=== PATIENT | male | born 1955 ===

== ENCOUNTER 2022-09-21 13:37 | Emergency (ER) | payer OTHER ==
[2022-09-21] MEDS ORDERED: NA CHLORIDE 0.9% 500 ML ONE (14:14)
[2022-09-21] MEDS ORDERED: FOLIC ACID 5 MG/ML VIAL ONE (14:15)
[2022-09-21] MEDS ORDERED: NA CHLORIDE 0.9% 1,000 ML ONE (14:15)
--- NOTE | 2022-09-21 14:20 | RAD REPORT ---
EXAM DESCRIPTION: CT - Head Brain Wo Cont - 09/21/2022 2:08 pm CLINICAL HISTORY: DIZZINESS Headache, drowsiness COMPARISON: No comparisons TECHNIQUE: All CT scans are performed using dose optimization technique as appropriate and may inclu de automated exposure control or mA/KV adjustment according to patient size. FINDINGS: No intracranial hemorrhage, hydrocephalus or extra-axial fluid collection.Mild generalized brain atrophy is present with mild periventricular and deep white matter chronic microvascular ische luzmaria changes.No areas of brain edema or evidence of midline shift. The paranasal sinuses and mastoids are clear. The calvarium is intact. IMPRESSION: No acute intracranial abnormality.
[2022-09-21 14:41] LABS: Absolute Lymphocytes (CBC) 1.5 K/uL (0.7-4.9); Hematocrit 46.1 % (39.6-49.0); MPV 7.8 fL (7.6-11.3); RBC Red Blood Cell Count 5.18 M/uL (4.33-5.43)
--- NOTE | 2022-09-21 14:47 | RAD REPORT ---
EXAM DESCRIPTION: RAD - Chest Single View - 09/21/2022 2:37 pm CLINICAL HISTORY: CHEST PAIN Chest pain. COMPARISON: Chest Pa And Lat (2 Views) dated 12/08/2017 FINDINGS: Portable technique limits examination quality. The lungs are emphysematous but grossly clear. The heart is normal in size. No displaced fractures. IMPRESSION: No acute intrathoracic process suspected.
--- NOTE | 2022-09-21 14:50 | RAD REPORT ---
EXAM DESCRIPTION: CT - Head angio - 09/21/2022 2:41 pm CLINICAL HISTORY: DIZZINESS Headache, drowsiness COMPARISON: <Comparisons> TECHNIQUE: CT angiography of the head was performed with MIPs. All CT scans are performed using dose optimization technique as appropriate and may include automated exposure control or mA/KV adjustment according to patient size. FINDINGS: No evidence of large vessel occlusion. No evidence of aneurysm is detected. No flow-limiti ng stenosis or vascular malformation identified. Antegrade flow is seen in the vertebral arteries. The vertebral arteries are codominant. The visualized dural venous sinuses are patent. IMPRESSION: No significant flow abnormality is detected.
[2022-09-21 14:56] LABS: Potassium 3.5 mEq/L (3.5-5.1); Troponin High Sensitivity 3.4 pg/mL (<58.9)
--- NOTE | 2022-09-21 14:57 | RAD REPORT ---
EXAM DESCRIPTION: CT - Neck Angio - 09/21/2022 2:42 pm CLINICAL HISTORY: FEVER Neck pain and swelling COMPARISON: <Comparisons> TECHNIQUE: CT angiography of the neck vessels was performed with MIPs. All CT scans are performed using dose optimization technique as appropriate and may include automated exposure control or mA/KV adjustment according to patient size. FINDINGS: A left aortic arch is identified with normal three vessel configuration of the great vesse ls. No significant flow abnormality is seen of the common carotid bilaterally. Mild hard plaque is seen involving both carotid bulbs. No significant stenosis identified bilaterally . Normal flow is seen within both vertebral arteries. IMPRESSION: No significant flow abnormality of the neck vessels is identified. Mild hard plaque seen in both carotid bulbs NASCET criteria used. Mild 0-49% stenosis Moderate 50-69% stenosis Severe 70-99% stenosis
[2022-09-21 15:09] LABS: Specific Gravity 1.017 (1.005-1.030); Urine Bilirubin NEGATIVE (Negative); Urine Blood Negative (Negative); Urine Clarity Clear (Clear); Urine Color Light-Yellow (Yellow); Urine Glucose NEGATIVE (Negative); Urine Protein NEGATIVE (Negative); Urine Urobilinogen Normal (Normal)
--- NOTE | 2022-09-21 16:00 | EDPHYS ---
Physician Documentation [facility] Name: Lambert Mccracken Age: 67 yrs Sex: Male : 1955 Arrival Date: 09/21/2022 Time: 13:37 Bed 13 Private MD: ED Physician Allan Larson HPI: 09/21 15:54 This 67 yrs old Male presents to ER via Ambulatory with complaints of alysia Dizziness, Blood Pressure Problem. 15:54 The patient presents with dizziness, sense of spinning, vertigo. Onset: The alysia symptoms/episode began/occurred last night. Context: occurred on a street or driveway. Modifying factors: The symptoms are alleviated by holding head still, the symptoms are aggravated by movement of head. Associated signs and symptoms: Pertinent positives: headache. Severity of symptoms: At their worst the symptoms were moderate in the emergency department the symptoms are unchanged. Patient's baseline: Neuro: alert and fully oriented. The patient has not experienced similar symptoms in the past. Historical: - Allergies: 13:49 No Known Allergies; hb - Home Meds: 13:49 None [Active]; hb - PMHx: 13:49 None; hb - PSHx: 13:49 None; hb - Immunization history:: Adult Immunizations up to date. - Social history:: Smoking status: Patient denies any tobacco usage or history of. ROS: 15:56 Constitutional: Negative for fever, chills, and weight loss, Eyes: Negative for injury, alysia pain, redness, and discharge, ENT: Negative for injury, pain, and discharge, Neck: Negative for injury, pain, and swelling, Cardiovascular: Negative for chest pain, palpitations, and edema, Respiratory: Negative for shortness of breath, cough, wheezing, and pleuritic chest pain, Abdomen/GI: Negative for abdominal pain, nausea, vomiting, diarrhea, and constipation, Back: Negative for injury and pain, : Negative for injury, bleeding, discharge, and swelling, MS/Extremity: Negative for injury and deformity, Skin: Negative for injury, rash, and discoloration, Psych: Negative for depression, anxiety, suicide ideation, homicidal ideation, and hallucinations, Allergy/Immunology: Negative for hives, rash, and allergies, Endocrine: Negative for neck swelling, polydipsia, polyuria, polyphagia, and marked weight changes, Hematologic/Lymphatic: Negative for swollen nodes, abnormal bleeding, and unusual bruising. 15:56 Neuro: Positive for dizziness. Exam: 15:56 Constitutional: This is a well developed, well nourished patient who is awake, alert, alysia and in no acute distress. Head/Face: Normocephalic, atraumatic. Eyes: Pupils equal round and reactive to light, extra-ocular motions intact. Lids and lashes normal. Conjunctiva and sclera are non-icteric and not injected. Cornea within normal limits. Periorbital areas with no swelling, redness, or edema. ENT: Nares patent. No nasal discharge, no septal abnormalities noted. Tympanic membranes are normal and external auditory canals are clear. Oropharynx with no redness, swelling, or masses, exudates, or evidence of obstruction, uvula midline. Mucous membranes moist. Neck: Trachea midline, no thyromegaly or masses palpated, and no cervical lymphadenopathy. Supple, full range of motion without nuchal rigidity, or vertebral point tenderness. No Meningismus. Chest/axilla: Normal chest wall appearance and motion. Nontender with no deformity. No lesions are appreciated. Cardiovascular: Regular rate and rhythm with a normal S1 and S2. No gallops, murmurs, or rubs. Normal PMI, no JVD. No pulse deficits. Respiratory: Lungs have equal breath sounds bilaterally, clear to auscultation and percussion. No rales, rhonchi or wheezes noted. No increased work of breathing, no retractions or nasal flaring. Abdomen/GI: Soft, non-tender, with normal bowel sounds. No distension or tympany. No guarding or rebound. No evidence of tenderness throughout. Back: No spinal tenderness. No costovertebral tenderness. Full range of motion. Male : Normal genitalia with no discharge or lesions. Skin: Warm, dry with normal turgor. Normal color with no rashes, no lesions, and no evidence of cellulitis. MS/ Extremity: Pulses equal, no cyanosis. Neurovascular intact. Full, normal range of motion. Neuro: Awake and alert, GCS 15, oriented to person, place, time, and situation. Cranial nerves II-XII grossly intact. Motor strength 5/5 in all extremities. Sensory grossly intact. Cerebellar exam normal. Normal gait. Psych: Awake, alert, with orientation to person, place and time. Behavior, mood, and affect are within normal limits. 15:56 ECG was reviewed by the Attending Physician. Vital Signs: 13:45 BP 160 / 94; Pulse 86; Resp 16; Pulse Ox 99% ; ko1 13:47 BP 179 / 105; Pulse 91; Resp 16; Temp 98.5; Pulse Ox 100% on R/A; Weight 74.84 kg; hb Height 5 ft. 8 in. ; Pain 0/10; 14:15 BP 158 / 88; Pulse 82; Resp 18; Pulse Ox 100% ; ko1 16:00 BP 145 / 87; Pulse 80; Resp 18; Pulse Ox 99% ; ko1 16:00 BP 162 / 90; Pulse 80; Resp 18; Pulse Ox 99% ; ko1 13:47 Body Mass Index 25.09 (74.84 kg, 172.72 cm) hb 13:47 Pain Scale: Adult hb MDM: 13:55 Patient medically screened. alysia 15:58 Differential Diagnosis altered mental status. Differential diagnosis: cardiac alysia arrhythmia, CVA, generalized weakness, GI bleed, hypovolemia, idiopathic dizziness, near-syncope, syncope, TIA, vertigo. Data reviewed: vital signs, nurses notes, lab test result(s), EKG, radiologic studies, CT scan, plain films. Consideration of Admission/Observation Escalation of care including admission/observation considered. I considered the following discharge prescriptions or medication management in the emergency department Medications were administered in the Emergency Department. See MAR. Test considered but Not performed: MRI: no mri brain. 09/21 13:50 Order name: Basic Metabolic Panel; Complete Time: 15:35 hb 09/21 13:50 Order name: CBC with Diff; Complete Time: 15:35 hb 09/21 13:50 Order name: Troponin HS; Complete Time: 15:35 hb 09/21 13:56 Order name: Urinalysis w/ reflexes; Complete Time: 15:35 alysia 09/21 13:50 Order name: XRAY Chest (1 view); Complete Time: 15:35 hb 09/21 13:50 Order name: Head Brain Wo Cont CT; Complete Time: 14:32 hb 09/21 13:56 Order name: CT Head Angio; Complete Time: 15:35 alysia 09/21 13:56 Order name: CT Neck Angio; Complete Time: 15:35 alysia 09/21 13:50 Order name: EKG; Complete Time: 13:50 hb 09/21 13:50 Order name: Cardiac monitoring; Complete Time: 13:51 hb 09/21 13:50 Order name: EKG - Nurse/Tech; Complete Time: 14:18 hb 07 13:50 Order name: IV Saline Lock; Complete Time: 14:18 hb 09/21 13:50 Order name: Labs collected and sent; Complete Time: 14:18 hb 09/21 13:50 Order name: O2 Per Protocol; Complete Time: 13:51 hb 09/21 13:50 Order name: O2 Sat Monitoring; Complete Time: 13:51 hb EC:56 Rate is 78 beats/min. Rhythm is regular. QRS [place] is Normal. CO interval is normal. QRS alysia interval is normal. QT interval is normal. No Q waves. T waves are Normal. No ST changes noted. Clinical impression: NSR w/ Non-specific ST/T Changes and No evidence of ischemia. Interpreted by me. Reviewed by me. Administered Medications: 14:18 Drug: NS 0.9% IV 500 ml Route: IV; Rate: bolus; Site: right antecubital; ko1 14:18 Drug: NS 0.9% IV 1000 ml Route: IV; Rate: 125 ml/hr; Site: right antecubital; ko1 14:18 Drug: foLIC Acid IVPB 1 mg Route: IVPB; Site: right antecubital; ko1 16:20 Drug: Lisinopril PO 10 mg Route: PO; ko1 16:20 Drug: Meclizine PO 25 mg Route: PO; ko1 16:20 Drug: Aspirin PO Chewable Tablet 162 mg Route: PO; ko1 Disposition Summary: 09/21/22 16:00 Discharge Ordered Location: Home alysia Problem: new alysia Symptoms: have improved alysia Condition: Stable alysia Diagnosis - Essential (primary) hypertension alysia - Benign paroxysmal vertigo, unspecified ear alysia - Unspecified kidney failure alysia Followup: alysia - With: Private Physician - When: 2 - 3 days - Reason: Recheck today's complaints, Continuance of care, Re-evaluation by your physician Followup: alysia - With: Raul Vaughn MD - When: 2 - 3 days - Reason: Recheck today's complaints, Continuance of care, Re-evaluation by your physician Discharge Instructions: - Discharge Summary Sheet alysia - Benign Positional Vertigo alysia - Dizziness alysia - Hypertension, Adult alysia - Hypertension, Adult, [id number] alysia - How to Take Your Blood Pressure, Cdzh-[id number] alysia - Aspirin and Your Heart alysia - Chronic Kidney Disease, Adult, [id number] alysia - Managing Your Hypertension alysia Forms: - Medication Reconciliation Form alysia - Thank You Letter alysia - Antibiotic Education alysia - Prescription Opioid Use alysia - Patient Portal Instructions alysia Prescriptions: - Meclizine 25 mg Oral Tablet - take 1 tablet by ORAL route every 8 hours As needed; 30 tablet; Refills: 0, alysia Product Selection Permitted - Lisinopril 10 mg Oral Tablet - take 1 tablet by ORAL route once daily; 20 tablet; Refills: 0, Product alysia Selection Permitted Signatures: Dispatcher [employer] Allan Ferrari MD MD cha Baxter, Heather, RN RN Shannan Fam RN RN ko1
--- NOTE | 2022-09-21 16:00 | ER ---
Nurse's Notes [facility] Name: Lambert Mccracken Age: 67 yrs Sex: Male : 1955 Arrival Date: 09/21/2022 Time: 13:37 Bed 13 Private MD: Diagnosis: Essential (primary) hypertension;Benign paroxysmal vertigo, unspecified ear;Unspecified kidney failure Presentation: 09/21 13:47 Chief complaint: Dizziness and "not feeling right" since last night, home BP 179/110. hb VAN NEGATIVE. Coronavirus screen: At this time, the client does not indicate any symptoms associated with coronavirus-19. Ebola Screen: No symptoms or risks identified at this time. Initial Sepsis Screen: Does the patient meet any 2 criteria? No. Patient's initial sepsis screen is negative. Does the patient have a suspected source of infection? No. Patient's initial sepsis screen is negative. Risk Assessment: Do you want to hurt yourself or someone else? Patient reports no desire to harm self or others. Onset of symptoms was September 20, 2022. 13:47 Method Of Arrival: Ambulatory hb 13:47 Acuity: DSE 3 hb Historical: - Allergies: 13:49 No Known Allergies; hb - Home Meds: 13:49 None [Active]; hb - PMHx: 13:49 None; hb - PSHx: 13:49 None; hb - Immunization history:: Adult Immunizations up to date. - Social history:: Smoking status: Patient denies any tobacco usage or history of. Screenin:00 [facility] ED Fall Risk Assessment (Adult) History of falling in the last 3 months, ko1 including since admission No falls in past 3 months (0 pts) Confusion or Disorientation No (0 pts) Intoxicated or Sedated No (0 pts) Impaired Gait No (0 pts) Mobility Assist Device Used No (0 pt) Altered Elimination No (0 pt) Score/Fall Risk Level 0 - 2 = Low Risk Oriented to surroundings, Maintained a safe environment, Educated pt \\T\\ family on fall prevention, incl call for assistance when getting out of bed, Assessed \\T\\ reinforced patient's understanding of fall precautions, Provided non-skid footwear, Hourly rounding (assess needs \\T\\ fall precautionary measures) done, Used ambulatory aids as needed (educated on \\T\\ assisted with), Used gait belt as appropriate. Abuse screen: Denies threats or abuse. Denies injuries from another. Nutritional screening: No deficits noted. Tuberculosis screening: No symptoms or risk factors identified. Assessment: 13:45 General: Appears in no apparent distress. comfortable, Behavior is calm, cooperative, ko1 appropriate for age. Pain: Denies pain. Neuro: No deficits noted. Reports dizziness. Cardiovascular: No deficits noted. Respiratory: No deficits noted. GI: No deficits noted. : No deficits noted. EENT: No deficits noted. Derm: No deficits noted. Musculoskeletal: No deficits noted. Vital Signs: 13:45 BP 160 / 94; Pulse 86; Resp 16; Pulse Ox 99% ; ko1 13:47 BP 179 / 105; Pulse 91; Resp 16; Temp 98.5; Pulse Ox 100% on R/A; Weight 74.84 kg; hb Height 5 ft. 8 in. ; Pain 0/10; 14:15 BP 158 / 88; Pulse 82; Resp 18; Pulse Ox 100% ; ko1 16:00 BP 145 / 87; Pulse 80; Resp 18; Pulse Ox 99% ; ko1 16:00 BP 162 / 90; Pulse 80; Resp 18; Pulse Ox 99% ; ko1 13:47 Body Mass Index 25.09 (74.84 kg, 172.72 cm) hb 13:47 Pain Scale: Adult hb ED Course: 13:40 Patient arrived in ED. ts1 13:44 Shannan Romero, RN is Primary Nurse. ko1 13:45 Client placed on continuous cardiac and pulse oximetry monitoring. NIBP monitoring ko1 applied. awake overnight monitor on. Door closed. Noise minimized. Warm blanket given. 13:49 Triage completed. hb 13:49 Arm band placed on. hb 13:55 Allan Larson MD is Attending Physician. alysia 14:10 Head Brain Wo Cont CT In Process Unspecified. EDMS 14:15 Inserted saline lock: 20 gauge in right antecubital area, using aseptic technique. ko1 Blood collected. 14:18 Basic Metabolic Panel Sent. ko1 14:18 CBC with Diff Sent. ko1 14:18 Troponin HS Sent. ko1 14:39 XRAY Chest (1 view) In Process Unspecified. EDMS 14:43 CT Head Angio In Process Unspecified. EDMS 14:43 CT Neck Angio In Process Unspecified. EDMS 14:56 Urinalysis w/ reflexes Sent. ko1 15:59 Raul Vaughn MD is Referral Physician. [facility] 16:00 Patient has correct armband on for positive identification. Bed in low position. Call ko1 light in reach. Side rails up X 1. Provided Education on: na. 16:38 No provider procedures requiring assistance completed. IV discontinued, intact, ko1 bleeding controlled, No redness/swelling at site. Pressure dressing applied. Administered Medications: 14:18 Drug: NS 0.9% IV 500 ml Route: IV; Rate: bolus; Site: right antecubital; ko1 14:18 Drug: NS 0.9% IV 1000 ml Route: IV; Rate: 125 ml/hr; Site: right antecubital; ko1 14:18 Drug: foLIC Acid IVPB 1 mg Route: IVPB; Site: right antecubital; ko1 16:20 Drug: Lisinopril PO 10 mg Route: PO; ko1 16:20 Drug: Meclizine PO 25 mg Route: PO; ko1 16:20 Drug: Aspirin PO Chewable Tablet 162 mg Route: PO; ko1 Medication: 16:00 VIS not applicable for this client. ko1 Outcome: 16:00 Discharge ordered by . [facility] 16:39 Discharged to home ambulatory, with friend. ko1 16:39 Condition: improved 16:39 Discharge instructions given to patient, friend, Instructed on discharge instructions, follow up and referral plans. medication usage, Demonstrated understanding of instructions, follow-up care, medications, Prescriptions given X 2. 16:39 Patient left the ED. ko1 Signatures: Dispatcher [employer] [facility] Allan Larson MD MD cha Baxter, Heather, RN RN Shannan Fam RN RN ko1 Elena Pineda PAS PAS ts1
[2022-09-21] MEDS ORDERED: MECLIZINE HCL 12.5 MG TAB ONE (16:30)
[2022-09-21] MEDS ORDERED: ASPIRIN 81 MG CHEWABLE TABLET ONE (16:30)
[2022-09-21] MEDS ORDERED: lisinopriL 10 MG TAB ONE (16:30)
[2022-09-21 17:08] VITALS: TEMP 98.5
[2022-09-21 17:15] VITALS: BP 162/90; O2SAT 99
--- NOTE | 2022-09-23 11:47 | EKG ---
Test Date: 2022-09-21 Test Time: 14:15:03 [employer] Supervisor: RAJNI MEASUREMENT RESULTS: Intervals: Rate: 78 TX: 134 QRSD: 86 QT: 380 QTc: 433 [place]: P: 65 TX: 134 QRS: -2 T: 67 INTERPRETIVE STATEMENTS: Normal sinus rhythm Normal ECG Compared to ECG 09/02/2005 08:29:25 No significant changes Electronically Signed On 09-23-22 11:44:59 CDT by Kenny Abreu
== END 2022-09-21 16:39 | disposition home or self-care (01) ==
LOC: ER 13:37
DX: H81.10 Benign paroxysmal vertigo, unspecified ear (principal); I10 Essential (primary) hypertension; N19 Unspecified kidney failure
CPT/HCPCS: 93005; 85025; 80048; 36415; 81003; 84484; 70450; 70496; 70498; 71045; 96374; 99285; Q9967; J8597; J7040; J7030; 82565